=== PATIENT | female | born 1990 | race Two or more races ===

== ENCOUNTER 2017-10-09 09:33 | Inpatient (IN) | payer OTHER ==
[~2017-10-09] VITALS: Ht 160 cm; Wt 72.6 kg
== END 2017-10-15 15:49 | disposition home or self-care (01) | DRG 744 ==
LOC: ER 09:33 → SEC-K 11:21 → OB/GYN 11:21
PROVIDERS: Obstetrics & Gynecology
PROC: BU4CZZZ Ultrasonography of Uterus and Ovaries (ICD-10-PCS; 2017-10-09)
PROC: 30233N1 Transfusion of Nonautologous Red Blood Cells into Peripheral Vein, Percutaneous Approach (ICD-10-PCS; 2017-10-09)
PROC: 0UDB8ZX Extraction of Endometrium, Via Natural or Artificial Opening Endoscopic, Diagnostic (ICD-10-PCS; principal; 2017-10-12 10:00)
DX: N93.8 Other specified abnormal uterine and vaginal bleeding (principal); D62 Acute posthemorrhagic anemia

== ENCOUNTER 2019-12-24 00:01 | Emergency (ER) | payer OTHER ==
[~2019-12-24] VITALS: Ht 152.4 cm; Wt 72.6 kg
[2019-12-24] MEDS ORDERED: LEVOTHYROXINE25 MCG (00:16)
[2019-12-24] MEDS ORDERED: ORPHENADRINE C100 MG PO (04:01)
[2019-12-24] MEDS ORDERED: KETO10TA2 PO (04:01)
== END 2019-12-24 04:20 | disposition home or self-care (01) ==
LOC: ER 00:01
DX: M54.2 Cervicalgia (principal)